=== PATIENT | male | born 1970 | race Caucasian/White ===

== ENCOUNTER 2022-05-31 21:03 | Inpatient (IN) | payer MEDICAID, OTHER ==
[~2022-05-31] VITALS: Ht 170.2 cm; Wt 71.2 kg
[2022-05-31 22:58] LABS: BASOPHILS % (AUTO) 0.3 % (0.0-2.0); EOSINOPHILS % (AUTO) 0.8 % (1.0-6.0); HEMATOCRIT 42.6 % (41-53); LYMPHOCYTES # (AUTO) 1.5 K/uL (1.0-4.8); LYMPHOCYTES % (AUTO) 19.4 % (22.0-44.0); MEAN CORPUSCULAR HEMOGLOBIN 29.6 pg (26.0-34.0); MEAN CORPUSCULAR HGB CONC 32.9 G/dL (31.0-37.0); MEAN CORPUSCULAR VOLUME 90 fL (80-100); MONOCYTES # (AUTO) 0.8 K/uL (0.1-1.0); MONOCYTES % (AUTO) 10.6 % (2.0-9.0); NEUTROPHILS # (AUTO) 5.4 K/uL (1.8-7.7); NEUTROPHILS % (AUTO) 68.9 % (40.0-70.0); PLATELET COUNT (AUTO) 311 K/uL (150-450); RED BLOOD CELL COUNT(AUTO) 4.73 MIL/uL (4.50-5.90)
[2022-05-31 23:09] LABS: ANION GAP 15 mmol/L (8-16); CALCIUM, TOTAL 8.9 mg/dL (8.8-10.5); CARBON DIOXIDE 25 mmol/L (22-29); CHLORIDE 98 mmol/L (98-107); CREATININE 0.93 mg/dL (0.60-1.30); GLOMERULAR FILTR. RATE CALC > 60 mL/min (>60); GLUCOSE,RANDOM 113 mg/dL (70-110); POTASSIUM 3.5 mmol/L (3.5-5.1); SODIUM SERUM 138 mmol/L (136-145); UREA NITROGEN, BLOOD 23 mg/dL (7-18)
[2022-05-31 23:14] LABS: ALANINE AMINOTRANSFERASE 38 U/L (12-78); ALBUMIN 4.3 g/dL (3.4-5.0); ALKALINE PHOSPHATASE 84 U/L (46-116); ASPARTATE AMINOTRANSFERASE 36 U/L (15-37); BILIRUBIN,TOTAL 0.6 mg/dL (0.1-1.0); TOTAL PROTEIN, SERUM 7.5 g/dL (6.4-8.2)
[2022-05-31] MEDS ORDERED: ZOLPIDEM TARTRATE 10 MG TABLET PO PRN (23:30)
[2022-05-31] MEDS: LORazepam 2 MG TABLET PO PRN (23:46)
[2022-05-31] MEDS: HALOPERIDOL 5 MG TABLET PO PRN (23:46)
[2022-05-31 23:51] LABS: COVID AG,FIA SOURCE NASAL SWAB
[2022-06-01 01:20] LABS: AMPHET/METH SCREEN,URINE POSITIVE (NEGATIVE); BARBITURATE SCREEN, URINE NEGATIVE (NEGATIVE); BENZODIAZEPINES SCREEN,URINE NEGATIVE (NEGATIVE); CANNABINOID SCREEN,URINE POSITIVE (NEGATIVE); COCAINE SCREEN,URINE NEGATIVE (NEGATIVE); METHADONE SCREEN, URINE NEGATIVE (NEGATIVE); OPIATE SCREEN,URINE NEGATIVE (NEGATIVE); PHENCYCLIDINE SCREEN,URINE NEGATIVE (NEGATIVE)
[2022-06-01 02:07] VITALS: BP 141/79
[2022-06-01] MEDS ORDERED: INFLUENZA VIRUS VACCINE QVS 2022-23 (6MO+)/PF 60 MCG/0.5 ML SYRINGE IM. ONE (06:30)
[2022-06-01] MEDS: NICOTINE 14 MG/24 HOUR PATCH TD SCH (08:48)
[2022-06-01 10:11] VITALS: BP 110/68
[2022-06-01] MEDS: OLANZapine 5 MG TABLET PO SCH ×2 (11:30→20:41)
[2022-06-01] MEDS ORDERED: ACETAMINOPHEN 325 MG TABLET PO PRN (12:30)
[2022-06-01] MEDS ORDERED: GuaiFENesin/D-METHORPHAN [SUGAR-FREE] 200-20MG/10 ML SYRUP UDCUP PO PRN (12:30)
[2022-06-01] MEDS ORDERED: PETROLATUM,WHITE 28 GM JELLY TP PRN (12:30)
[2022-06-01] MEDS ORDERED: DOCUSATE SODIUM 100 MG CAPSULE PO PRN (12:30)
[2022-06-01] MEDS ORDERED: IBUPROFEN 400 MG TABLET PO PRN (12:30)
[2022-06-01] MEDS ORDERED: ONDANSETRON HCL 4 MG TABLET PO PRN (12:30)
[2022-06-01] MEDS ORDERED: MAG HYDROX/AL HYDROX/SIMETH ES 30 ML SUSPENSION UDCUP PO PRN (12:30)
[2022-06-01] MEDS ORDERED: LOPERAMIDE HCL 2 MG CAPSULE PO PRN (12:30)
[2022-06-01] MEDS ORDERED: ALBUTEROL SULFATE HFA 90 MCG/PUFF 8 GM INHALER IH PRN (12:30)
[2022-06-01] MEDS ORDERED: CloNIDine HCL 0.1 MG TABLET PO PRN (12:30)
[2022-06-01] MEDS ORDERED: MAGNESIUM HYDROXIDE SUSPENSION 30 ML UDCUP PO PRN (12:30)
[2022-06-01] MEDS ORDERED: NICOTINE 14 MG/24 HOUR PATCH TD PRN (12:30)
[2022-06-01 16:40] VITALS: BP 105/62
[2022-06-01 20:38] VITALS: BP 130/77
[2022-06-02] MEDS: OLANZapine 5 MG TABLET PO SCH ×2 (08:36→20:23)
[2022-06-02] MEDS: NICOTINE 14 MG/24 HOUR PATCH TD SCH (08:47)
[2022-06-02 09:34] VITALS: BP 109/67
[2022-06-02 16:15] VITALS: BP 123/65
[2022-06-02] MEDS: HALOPERIDOL 5 MG TABLET PO PRN (17:08)
[2022-06-02] MEDS: LORazepam 2 MG TABLET PO PRN (17:08)
[2022-06-02 21:44] VITALS: BP 128/70
[2022-06-03 09:34] VITALS: BP 142/88
[2022-06-03] MEDS: OLANZapine 5 MG TABLET PO SCH ×2 (11:51→20:06)
[2022-06-03] MEDS: NICOTINE 14 MG/24 HOUR PATCH TD SCH (11:53)
[2022-06-03 16:52] VITALS: BP 145/90
[2022-06-03 20:27] VITALS: BP 108/71
[2022-06-04 08:30] VITALS: BP 122/68
[2022-06-04] MEDS: OLANZapine 5 MG TABLET PO SCH ×2 (08:56→20:42)
[2022-06-04] MEDS: NICOTINE 14 MG/24 HOUR PATCH TD SCH (09:00)
[2022-06-04 21:22] VITALS: BP 120/70
[2022-06-05 08:36] VITALS: BP 148/75
[2022-06-05] MEDS: NICOTINE 14 MG/24 HOUR PATCH TD SCH (09:10)
[2022-06-05] MEDS: OLANZapine 5 MG TABLET PO SCH (09:10)
[2022-06-05] MEDS ORDERED: OLAN5TAB52 PO (12:11)
[2022-06-06] MEDS ORDERED: OLAN5TAB52 PO (05:06)
== END 2022-06-05 12:50 | disposition home or self-care (01) | DRG 750 ==
LOC: EMS 21:06 → 3EI 06-01 00:41
PROVIDERS: ADMIT Psychiatry & Neurology Psychiatry; ATTEND Psychiatry & Neurology Psychiatry
DX: F20.0 Paranoid schizophrenia (principal); R45.851 Suicidal ideations; R56.9 Unspecified convulsions; F15.20 Other stimulant dependence, uncomplicated; F12.10 Cannabis abuse, uncomplicated; R73.9 Hyperglycemia, unspecified; Z79.899 Other long term (current) drug therapy
CPT/HCPCS: 80053; 80307; 85025; 97166; 97535; 99285; G0480